=== PATIENT | female | born 1950 | race Caucasian/White ===

== ENCOUNTER 2020-06-21 08:45 | Inpatient (IN) | payer BC, MEDICARE ==
[~2020-06-21] VITALS: Ht 165.1 cm; Wt 110.0 kg
[2020-06-21] MEDS ORDERED: normal saline 1000ML IV soln IVB ONE (09:50)
[2020-06-21] MEDS ORDERED: ondansetron/PF 4mg/2ml inj IV ONE (09:50)
[2020-06-21 10:13] LABS: BASOPHILS # (AUTO) 0.1 X10'3 (0-0.2); EOSINOPHILS # (AUTO) 0.1 X10'3 (0-0.9); EOSINOPHILS % (AUTO) 0.9 % (0-6); HEMATOCRIT 43.1 % (35.0-45.0); HEMOGLOBIN 14.9 g/dl (12.0-16.0); LYMPHOCYTES # (AUTO) 0.6 X10'3 (1.1-4.8); LYMPHOCYTES % (AUTO) 7.8 % (21-51); MEAN CORPUSCULAR HEMOGLOBIN 40.8 PG (27.0-31.0); MEAN CORPUSCULAR HGB CONC 34.5 g/dL (33.0-36.5); MEAN CORPUSCULAR VOLUME 118.4 FL (78-98); MEAN PLATELET VOLUME 7.6 FL (7.4-10.4); MONOCYTES # (AUTO) 0.4 X10'3 (0-0.9); NEUTROPHILS % (AUTO) 84.3 % (42-75); PLATELET COUNT 168 X10'3 (140-440); RED BLOOD COUNT 3.64 X10'6 (4.20-5.60); RED CELL DISTRIBUTION WIDTH 13.9 % (11.5-14.5); WHITE BLOOD COUNT 7.1 X10'3 (4.5-11.0)
[2020-06-21 10:25] LABS: ALANINE AMINOTRANSFERASE 111 U/L (12-78); ALBUMIN/GLOBULIN RATIO 0.7 (1.1-1.5); ALKALINE PHOSPHATASE 216 IU/L (46-116); ANION GAP 7 (8-16); ASPARTATE AMINO TRANSFERASE 217 U/L (10-37); BILIRUBIN,TOTAL 2.2 MG/DL (0.1-1.0); BLOOD UREA NITROGEN 9 MG/DL (7-18); BUN/CREATININE RATIO 9.4 (6.6-38.0); CHLORIDE 104 MMOL/L (99-107); CREATININE 0.96 MG/DL (0.40-0.90); GLUCOSE 139 MG/DL (70-104); POTASSIUM 4.2 MMOL/L (3.5-5.1); SODIUM 139 MMOL/L (135-145); TOTAL CARBON DIOXIDE 28.2 MMOL/L (24-32); TOTAL PROTEIN 7.5 G/DL (6.4-8.2); eGFR 58 ML/MIN
[2020-06-21 10:27] LABS: LIPASE 155 U/L (73-393); TROPONIN I < 0.04 NG/ML (0.0-0.05)
[2020-06-21 10:42] LABS: PLATELET ESTIMATE NORMAL
--- NOTE | 2020-06-21 11:10 | NUR ---
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
[2020-06-21] MEDS ORDERED: NAPR-56 PO (11:28)
[2020-06-21] MEDS ORDERED: LORazepam 2 mg/ml vial IV ONE ×2 (11:40→14:45)
[2020-06-21] MEDS ORDERED: acetaminophen 325mg tablet PO PRN (12:05)
[2020-06-21] MEDS ORDERED: bisacodyl 10mg suppository rectal RC PRN (12:05)
[2020-06-21] MEDS ORDERED: potassium Cl 20 mEq SR tablet PO PRN ×2 (12:05)
[2020-06-21] MEDS ORDERED: magnesium 2GM in 50ml NS 50 ML IV PRN (12:05)
[2020-06-21] MEDS ORDERED: mag hydrox/Alum hydrox/simeth 30ml oral suspension PO PRN (12:05)
[2020-06-21] MEDS ORDERED: potassium CL 10mEq/100ml bag 100 ML IV PRN (12:05)
[2020-06-21] MEDS ORDERED: magnesium 4gm in 100ml NS 100 ML IV PRN (12:05)
[2020-06-21] MEDS: normal saline 1000ml 1,000 ML IV SCH ×2 (12:35→22:44)
--- NOTE | 2020-06-21 13:45 | NUR ---
DAUGHTER, JOHNNIE CALLED IN FOR CONDITION REPORT. JOHNNIE CONTACT NUMBER IS
--- NOTE | 2020-06-21 14:20 | NUR ---
Received report from ANCELMO Fowler. awaiting patient arrival.
--- NOTE | 2020-06-21 14:52 | NUR ---
PT TO MRI AND THEN TO THE FLOOR
--- NOTE | 2020-06-21 15:15 | NUR ---
patient arrived to the floor. VSS
[2020-06-21 15:20] VITALS: BP 153/51
--- NOTE | 2020-06-21 15:51 | NUR ---
PAGER ID: [phone] MESSAGE: Edgardo LylesB : patient refusing MRCP. even after the Ativan was given, she was not able to complete the study. thanks!
[2020-06-21] MEDS: piperacillin/tazo 4.5gm/100ml 100 ML IV SCH (16:10)
[2020-06-21] MEDS ORDERED: diazepam 5mg tablet PO ONE (16:15)
[2020-06-21 16:37] LABS: CLARITY,URINE TURBID (Clear); COLOR,URINE YELLOW (Yellow); GLUCOSE, URINE NEGATIVE (Neg); KETONES,URINE 15 mg/dl (Neg); LEUKOCYTE ESTERASE ,URINE TRACE (Neg); NITRITES, URINE POSITIVE (Neg); OCCULT BLOOD,URINE NEGATIVE (Neg); PH,URINE 6.5 (4.8-8.0); PROTEIN,URINE TRACE mg/dl (Neg); UROBILINOGEN,URINE >=8.0 E.U/dL (0.2-1.0)
[2020-06-21 16:38] LABS: UA COLLECTION TYPE OTHER
[2020-06-21 16:51] LABS: SQUAMOUS EPITHELIAL CELL,UR MANY /LPF (FEW)
[2020-06-21 16:52] LABS: BACTERIA,URINE 4+ /HPF (Neg); MUCUS STRANDS NONE SEEN /LPF (Neg); RBC,URINE 0-2 /HPF (0-2)
--- NOTE | 2020-06-21 18:05 | NUR ---
Problems reprioritized. Patient report given, questions answered & plan of care reviewed with Rhea Logan RN.
--- NOTE | 2020-06-21 18:06 | NUR ---
Student documentation: I have reviewed and agree with all interventions, assessments performed and documented by SN Dolores. Student Medication Administration: For this medication-pass time frame, all medication were reviewed, dispensed, administered and documented per hospital policy by SN oDlores.
--- NOTE | 2020-06-21 18:34 | NUR ---
Problems reprioritized. Patient report given, questions answered & plan of care reviewed with ANCELMO Wilkerson.
--- NOTE | 2020-06-21 18:51 | NUR ---
Patient in room [facility]. I have received report from ANCELMO Snowden and had the opportunity to ask questions and assume patient care.
[2020-06-21 19:31] VITALS: BP 134/59
[2020-06-21] MEDS: K and/or MAG REPLACEMENT MC SCH (19:44)
[2020-06-21] MEDS: enoxaparin 40mg/0.4ml syringe SQ SCH (20:00)
[2020-06-22] VITALS (18 sets, daily range): BP systolic 115–157; BP diastolic 58–87
[2020-06-22] MEDS: piperacillin/tazo 4.5gm/100ml 100 ML IV SCH ×4 (00:26→23:24)
[2020-06-22 06:00] LABS: ALANINE AMINOTRANSFERASE 80 U/L (12-78); ALBUMIN 2.5 G/DL (3.4-5.0); ALBUMIN/GLOBULIN RATIO 0.6 (1.1-1.5); ALKALINE PHOSPHATASE 163 IU/L (46-116); ANION GAP 9 (8-16); ASPARTATE AMINO TRANSFERASE 133 U/L (10-37); BILIRUBIN,TOTAL 2.7 MG/DL (0.1-1.0); BLOOD UREA NITROGEN 9 MG/DL (7-18); BUN/CREATININE RATIO 8.9 (6.6-38.0); CALCIUM 7.4 MG/DL (8.5-10.1); CHLORIDE 106 MMOL/L (99-107); CREATININE 1.01 MG/DL (0.40-0.90); GLUCOSE 102 MG/DL (70-104); MAGNESIUM 2.1 MG/DL (1.5-2.4); PARTIAL THROMBOPLASTIN TIME 26 SECONDS (22-32); POTASSIUM 3.4 MMOL/L (3.5-5.1); SODIUM 139 MMOL/L (135-145); TOTAL CARBON DIOXIDE 24.3 MMOL/L (24-32); TOTAL PROTEIN 6.4 G/DL (6.4-8.2); eGFR 55 ML/MIN
[2020-06-22 06:06] LABS: BASOPHILS % (AUTO) 0.4 % (0-1); EOSINOPHILS # (AUTO) 0.1 X10'3 (0-0.9); HEMATOCRIT 37.9 % (35.0-45.0); HEMOGLOBIN 12.9 g/dl (12.0-16.0); LYMPHOCYTES # (AUTO) 0.7 X10'3 (1.1-4.8); LYMPHOCYTES % (AUTO) 14.2 % (21-51); MEAN CORPUSCULAR HEMOGLOBIN 40.3 PG (27.0-31.0); MEAN CORPUSCULAR HGB CONC 33.9 g/dL (33.0-36.5); MEAN CORPUSCULAR VOLUME 118.9 FL (78-98); MEAN PLATELET VOLUME 8.1 FL (7.4-10.4); MONOCYTES # (AUTO) 0.4 X10'3 (0-0.9); MONOCYTES % (AUTO) 8.3 % (2-12); NEUTROPHILS # (AUTO) 3.9 X10'3 (1.8-7.7); NEUTROPHILS % (AUTO) 76.1 % (42-75); PLATELET COUNT 129 X10'3 (140-440); RED BLOOD COUNT 3.19 X10'6 (4.20-5.60); RED CELL DISTRIBUTION WIDTH 13.7 % (11.5-14.5); WHITE BLOOD COUNT 5.1 X10'3 (4.5-11.0)
--- NOTE | 2020-06-22 06:28 | NUR ---
Problems reprioritized. Patient report given, questions answered & plan of care reviewed with ANCELMO Snowden.
--- NOTE | 2020-06-22 06:40 | NUR ---
Patient in room [facility]. I have received report from ANCELMO Horne and had the opportunity to ask questions and assume patient care.
[2020-06-22 07:24] LABS: PLATELET ESTIMATE DECREASED
[2020-06-22] MEDS: K and/or MAG REPLACEMENT MC SCH ×2 (08:00→20:00)
[2020-06-22] MEDS: potassium CL 10mEq/100ml bag 100 ML IV PRN ×4 (08:12→19:30)
[2020-06-22] MEDS: normal saline 1000ml 1,000 ML IV SCH ×2 (10:43→18:05)
--- NOTE | 2020-06-22 12:00 | NUR ---
Spoke with Lacey daughter of patient on phone. updated on plan of care. phone number [phone]
[2020-06-22] MEDS ORDERED: INDOCYANINE GREEN 25 MG/10 ML VIAL IV ONE (13:00)
--- NOTE | 2020-06-22 14:39 | NUR ---
patient picked up for OR. report called to ANCELMO Perez.
[2020-06-22] MEDS ORDERED: LIDOcaine 1% 30ml preserv. free vial ONE (15:23)
[2020-06-22] MEDS ORDERED: BUPIVAcaine/PF 2.5 mg/ml (0.25%) 30ml vial ONE (15:23)
[2020-06-22] MEDS ORDERED: sevoflurane 250ml liquid IH ONE (15:36)
[2020-06-22] MEDS ORDERED: fentaNYL/PF 50MCG/1 ML 2ML syringe ONE (15:42)
[2020-06-22] MEDS ORDERED: midazolam 2 mg/2 ml injection ONE (15:42)
[2020-06-22] MEDS ORDERED: rocuronium 10mg/ml inj IV ONE (15:45)
[2020-06-22] MEDS ORDERED: ringers solution, lacted 1,000 ML IV SCH (16:07)
[2020-06-22] MEDS ORDERED: morphine 2 MG/ML inj. syringe IV PRN (16:10)
[2020-06-22] MEDS ORDERED: ondansetron/PF 4mg/2ml inj IV PRN (16:10)
[2020-06-22] MEDS ORDERED: proCHLORperazine 10 MG/2 ml inj IV PRN (16:10)
[2020-06-22] MEDS ORDERED: morphine 4 MG/ML inj SYRINge IV PRN (16:10)
[2020-06-22] MEDS ORDERED: meperidine/PF 25mg/ml syringe IV PRN ×3 (16:10)
[2020-06-22] MEDS ORDERED: propofol inj 20 ML IV ONE (17:22)
[2020-06-22] MEDS ORDERED: dexamethasone sod phosphate 4mg/ml inj. ONE (17:23)
[2020-06-22] MEDS ORDERED: ondansetron/PF 4mg/2ml inj ONE (17:25)
[2020-06-22] MEDS ORDERED: neostigmine methylsulfate 1 MG/ML 10ml vial ONE (17:33)
[2020-06-22] MEDS ORDERED: glycopyrrolate 0.2mg/ml inj ONE (17:33)
--- NOTE | 2020-06-22 17:40 | NUR ---
Received from OR via BED , accompanied by Anesthesiologist DR GANDHI and report given by Anesthesiolgist. PATIENT WAKING UP, DENIES PAIN, V/S WNL, NEUROVASCULAR CHECKS INTACT, 20G PIV RUE, SCD ON, BANDAIDS TO LAP SIGHTS OF ABDOMEN AND ANNAMARIE DRAIN WITH MINIMAL OUTPUT SO FAR.
[2020-06-22] MEDS ORDERED: HYDROcodone/acetaminophen 5mg/325mg tablet PO PRN (18:05)
--- NOTE | 2020-06-22 18:16 | NUR ---
Student Medication Administration: For this medication-pass time frame, all medication were reviewed, dispensed, administered and documented per hospital policy by SN Dolores. Student documentation: I have reviewed and agree with all interventions, assessments performed and documented by SN Dolores.
--- NOTE | 2020-06-22 18:24 | NUR ---
Problems reprioritized. Patient report given, questions answered & plan of care reviewed with Rhea Pisano RN.
--- NOTE | 2020-06-22 18:33 | NUR ---
Problems reprioritized. Patient report given, questions answered & plan of care reviewed with ANCELMO Wilkerson.
--- NOTE | 2020-06-22 18:34 | NUR ---
Patient in room [facility]. I have received report from Isi, RN and Navi event services manager and had the opportunity to ask questions and assume patient care.
--- NOTE | 2020-06-22 18:45 | NUR ---
PATIENT A&OX4, DENIES PAIN, V/S WNL, NEUROVASCULAR CHECKS INTACT, 20G PIV RUE, SCD ON, BANDAIDS TO LAP SIGHTS OF ABDOMEN AND ANNAMARIE DRAIN WITH APPROX 30CC OUTPUT IN ANNAMARIE. . PATIENT TAKEN TO 350B WITH ALL BELONGINGS AND HOOKED UP TO MONITORS IN ROOM AND REPORT GIVEN TO UI UX DEVELOPER WHO HAS TAKEN OVER PATIENT CARE.
[2020-06-22] MEDS: HYDROmorphone inj. 0.5 MG/0.5 ML DISP.SYRIN IV PRN (19:06)
[2020-06-22] MEDS: enoxaparin 40mg/0.4ml syringe SQ SCH (20:00)
--- NOTE | 2020-06-22 20:18 | NUR ---
Non-administered the lovenox as the patient has recently returned from a robotic lap procedure. Patient has a ANNAMARIE which has put out a total of 150 mL since return to the floor, and has bloody discharge seeping from lower midline lap site into navel. Guaze placed in navel and hydrophilic to keep secured. Will continue to monitor.
[2020-06-23] VITALS: BP 121/61
--- NOTE | 2020-06-23 03:00 | NUR ---
Pt up to restroom, ANNAMARIE drain began to leak at insertion site. Changed the lap site bandage below and removed band-aid over ANNAMARIE; redressed with fenestrated hydrophilic and foam tape.
[2020-06-23] MEDS: HYDROmorphone inj. 0.5 MG/0.5 ML DISP.SYRIN IV PRN (03:03)
[2020-06-23] MEDS: normal saline 1000ml 1,000 ML IV SCH ×2 (04:29→16:34)
[2020-06-23] MEDS: ondansetron/PF 4mg/2ml inj IV PRN (04:46)
--- NOTE | 2020-06-23 04:54 | NUR ---
Attempted to walk patient; took a couple of steps and became nauseated and started to dry heave. Administered zofran and got patient back to bed. Will attempt a walk later in the AM.
[2020-06-23 05:15] LABS: BASOPHILS % (AUTO) 0.4 % (0-1); EOSINOPHILS % (AUTO) 0 % (0-6); HEMATOCRIT 38.6 % (35.0-45.0); HEMOGLOBIN 12.9 g/dl (12.0-16.0); LYMPHOCYTES # (AUTO) 0.4 X10'3 (1.1-4.8); LYMPHOCYTES % (AUTO) 5.8 % (21-51); MEAN CORPUSCULAR HEMOGLOBIN 40.2 PG (27.0-31.0); MEAN CORPUSCULAR HGB CONC 33.4 g/dL (33.0-36.5); MEAN CORPUSCULAR VOLUME 120.5 FL (78-98); MEAN PLATELET VOLUME 8.3 FL (7.4-10.4); MONOCYTES # (AUTO) 0.3 X10'3 (0-0.9); MONOCYTES % (AUTO) 4.3 % (2-12); NEUTROPHILS % (AUTO) 89.5 % (42-75); PLATELET COUNT 142 X10'3 (140-440); RED CELL DISTRIBUTION WIDTH 13.8 % (11.5-14.5); WHITE BLOOD COUNT 6.7 X10'3 (4.5-11.0)
[2020-06-23 06:13] LABS: ALANINE AMINOTRANSFERASE 77 U/L (12-78); ALBUMIN 2.4 G/DL (3.4-5.0); ALBUMIN/GLOBULIN RATIO 0.6 (1.1-1.5); ANION GAP 10 (8-16); ASPARTATE AMINO TRANSFERASE 145 U/L (10-37); BILIRUBIN,TOTAL 2.8 MG/DL (0.1-1.0); BLOOD UREA NITROGEN 10 MG/DL (7-18); BUN/CREATININE RATIO 9.7 (6.6-38.0); CALCIUM 7.1 MG/DL (8.5-10.1); CHLORIDE 106 MMOL/L (99-107); CREATININE 1.03 MG/DL (0.40-0.90); GLUCOSE 154 MG/DL (70-104); POTASSIUM 4.1 MMOL/L (3.5-5.1); SODIUM 137 MMOL/L (135-145); TOTAL CARBON DIOXIDE 20.9 MMOL/L (24-32); TOTAL PROTEIN 6.3 G/DL (6.4-8.2); eGFR 53 ML/MIN
--- NOTE | 2020-06-23 06:28 | NUR ---
Problems reprioritized. Patient report given, questions answered & plan of care reviewed with ANCELMO Vee.
--- NOTE | 2020-06-23 06:32 | NUR ---
Patient in room [facility]. I have received report from Rhea Reynoso RN and had the opportunity to ask questions and assume patient care.
[2020-06-23 06:51] LABS: ALKALINE PHOSPHATASE 149 IU/L (46-116)
[2020-06-23 07:42] LABS: PLATELET ESTIMATE NORMAL
[2020-06-23] MEDS: piperacillin/tazo 4.5gm/100ml 100 ML IV SCH ×2 (07:56→16:33)
[2020-06-23 08:00] VITALS: BP 125/167
[2020-06-23] MEDS: K and/or MAG REPLACEMENT MC SCH ×2 (08:00→20:00)
--- NOTE | 2020-06-23 09:38 | NUR ---
Student Medication Administration: For this medication-pass time frame, all medication were reviewed, dispensed, administered and documented per hospital policy by JAKE Grewal [facility].
[2020-06-23] MEDS: HYDROcodone/acetaminophen 10/325mg tab PO PRN ×2 (12:19→16:32)
--- NOTE | 2020-06-23 18:07 | NUR ---
Student documentation: I have reviewed all interventions, assessments performed and documented by [facility] student.
[2020-06-23 20:00] VITALS: BP 124/63
[2020-06-23] MEDS: lactobacillus rhamnosus 10,000 MMU CELLS/CAPSULE PO SCH (20:00)
[2020-06-23] MEDS: enoxaparin 40mg/0.4ml syringe SQ SCH (20:00)
[2020-06-24] VITALS: BP 115/52
[2020-06-24] MEDS: HYDROcodone/acetaminophen 10/325mg tab PO PRN ×3 (01:57→19:30)
[2020-06-24 05:26] LABS: BASOPHILS % (AUTO) 0.5 % (0-1); EOSINOPHILS # (AUTO) 0.1 X10'3 (0-0.9); EOSINOPHILS % (AUTO) 0.8 % (0-6); HEMOGLOBIN 12.4 g/dl (12.0-16.0); LYMPHOCYTES # (AUTO) 0.8 X10'3 (1.1-4.8); LYMPHOCYTES % (AUTO) 11.3 % (21-51); MEAN CORPUSCULAR HEMOGLOBIN 40.4 PG (27.0-31.0); MEAN CORPUSCULAR HGB CONC 33.4 g/dL (33.0-36.5); MEAN CORPUSCULAR VOLUME 120.8 FL (78-98); MONOCYTES # (AUTO) 0.5 X10'3 (0-0.9); MONOCYTES % (AUTO) 6.7 % (2-12); NEUTROPHILS # (AUTO) 5.9 X10'3 (1.8-7.7); NEUTROPHILS % (AUTO) 80.7 % (42-75); PLATELET COUNT 140 X10'3 (140-440); RED BLOOD COUNT 3.07 X10'6 (4.20-5.60); RED CELL DISTRIBUTION WIDTH 13.9 % (11.5-14.5); WHITE BLOOD COUNT 7.3 X10'3 (4.5-11.0)
[2020-06-24 05:36] LABS: ALANINE AMINOTRANSFERASE 60 U/L (12-78); ALBUMIN 2.2 G/DL (3.4-5.0); ALBUMIN/GLOBULIN RATIO 0.6 (1.1-1.5); ALKALINE PHOSPHATASE 121 IU/L (46-116); ANION GAP 8 (8-16); ASPARTATE AMINO TRANSFERASE 92 U/L (10-37); BILIRUBIN,TOTAL 2.6 MG/DL (0.1-1.0); BLOOD UREA NITROGEN 9 MG/DL (7-18); BUN/CREATININE RATIO 9.1 (6.6-38.0); CALCIUM 7.5 MG/DL (8.5-10.1); CHLORIDE 103 MMOL/L (99-107); CREATININE 0.99 MG/DL (0.40-0.90); GLUCOSE 89 MG/DL (70-104); MAGNESIUM 1.8 MG/DL (1.5-2.4); POTASSIUM 3.8 MMOL/L (3.5-5.1); SODIUM 136 MMOL/L (135-145); TOTAL CARBON DIOXIDE 24.9 MMOL/L (24-32); TOTAL PROTEIN 5.9 G/DL (6.4-8.2); eGFR 56 ML/MIN
[2020-06-24 07:00] VITALS: BP 124/57
[2020-06-24 07:08] LABS: PLATELET ESTIMATE NORMAL
[2020-06-24] MEDS: K and/or MAG REPLACEMENT MC SCH ×2 (08:00→20:00)
[2020-06-24] MEDS: ondansetron/PF 4mg/2ml inj IV PRN ×2 (09:15→18:45)
[2020-06-24] MEDS: lactobacillus rhamnosus 10,000 MMU CELLS/CAPSULE PO SCH ×2 (09:15→19:30)
[2020-06-24 12:00] VITALS: BP 127/52
--- NOTE | 2020-06-24 18:25 | NUR ---
GAVE REPORT TO FELECIA AG.
--- NOTE | 2020-06-24 18:54 | NUR ---
I have received report from ANCELMO Meza and had the opportunity to ask questions and assume patient care.
--- NOTE | 2020-06-24 18:55 | NUR ---
Patient in room [facility]. I have received report from Susana AG and had the opportunity to ask questions and assume patient care.
[2020-06-24] MEDS: enoxaparin 40mg/0.4ml syringe SQ SCH (19:32)
[2020-06-25 00:30] VITALS: BP 127/60
[2020-06-25 05:35] LABS: BASOPHILS % (AUTO) 0.3 % (0-1); EOSINOPHILS # (AUTO) 0.1 X10'3 (0-0.9); EOSINOPHILS % (AUTO) 1.1 % (0-6); HEMATOCRIT 37.4 % (35.0-45.0); HEMOGLOBIN 12.8 g/dl (12.0-16.0); LYMPHOCYTES # (AUTO) 0.7 X10'3 (1.1-4.8); LYMPHOCYTES % (AUTO) 12.3 % (21-51); MEAN CORPUSCULAR HEMOGLOBIN 40.8 PG (27.0-31.0); MEAN CORPUSCULAR HGB CONC 34.1 g/dL (33.0-36.5); MEAN CORPUSCULAR VOLUME 119.6 FL (78-98); MONOCYTES # (AUTO) 0.4 X10'3 (0-0.9); MONOCYTES % (AUTO) 7.2 % (2-12); NEUTROPHILS # (AUTO) 4.8 X10'3 (1.8-7.7); NEUTROPHILS % (AUTO) 79.1 % (42-75); PLATELET COUNT 134 X10'3 (140-440); RED BLOOD COUNT 3.13 X10'6 (4.20-5.60); RED CELL DISTRIBUTION WIDTH 13.6 % (11.5-14.5)
[2020-06-25 05:52] LABS: ALANINE AMINOTRANSFERASE 53 U/L (12-78); ALBUMIN 2.3 G/DL (3.4-5.0); ALBUMIN/GLOBULIN RATIO 0.6 (1.1-1.5); ALKALINE PHOSPHATASE 126 IU/L (46-116); ANION GAP 8 (8-16); ASPARTATE AMINO TRANSFERASE 79 U/L (10-37); BILIRUBIN,TOTAL 2.5 MG/DL (0.1-1.0); BLOOD UREA NITROGEN 6 MG/DL (7-18); BUN/CREATININE RATIO 7.1 (6.6-38.0); CALCIUM 7.9 MG/DL (8.5-10.1); CHLORIDE 104 MMOL/L (99-107); CREATININE 0.84 MG/DL (0.40-0.90); GLUCOSE 85 MG/DL (70-104); POTASSIUM 3.5 MMOL/L (3.5-5.1); SODIUM 137 MMOL/L (135-145); TOTAL CARBON DIOXIDE 24.9 MMOL/L (24-32); TOTAL PROTEIN 6.3 G/DL (6.4-8.2); eGFR 67 ML/MIN
--- NOTE | 2020-06-25 06:43 | NUR ---
Patient in room [facility]. I have received report from ANCELMO Carvalho and had the opportunity to ask questions and assume patient care.
--- NOTE | 2020-06-25 06:52 | NUR ---
Problems reprioritized. Patient report given, questions answered & plan of care reviewed with ANCELMO Ballesteros.
[2020-06-25 07:00] VITALS: BP 144/65
[2020-06-25] MEDS: K and/or MAG REPLACEMENT MC SCH ×2 (08:00→19:47)
[2020-06-25] MEDS: HYDROcodone/acetaminophen 10/325mg tab PO PRN ×2 (08:44→19:50)
[2020-06-25] MEDS: lactobacillus rhamnosus 10,000 MMU CELLS/CAPSULE PO SCH ×2 (08:44→19:50)
[2020-06-25 11:00] VITALS: BP 130/79
--- NOTE | 2020-06-25 18:29 | NUR ---
Problems reprioritized. Patient report given, questions answered & plan of care reviewed with ANCELMO Huang.
[2020-06-25] MEDS: ondansetron/PF 4mg/2ml inj IV PRN (18:34)
[2020-06-25] MEDS: enoxaparin 40mg/0.4ml syringe SQ SCH (19:51)
[2020-06-25] MEDS ORDERED: MICONAZOLE NITRATE 100 MG VG SCH (21:00)
[2020-06-26 00:20] VITALS: BP 131/56
[2020-06-26] MEDS: ondansetron/PF 4mg/2ml inj IV PRN ×2 (05:12→11:13)
[2020-06-26 05:34] LABS: BASOPHILS % (AUTO) 0.2 % (0-1); EOSINOPHILS # (AUTO) 0.1 X10'3 (0-0.9); EOSINOPHILS % (AUTO) 1.4 % (0-6); HEMATOCRIT 36.9 % (35.0-45.0); HEMOGLOBIN 12.4 g/dl (12.0-16.0); LYMPHOCYTES # (AUTO) 0.7 X10'3 (1.1-4.8); LYMPHOCYTES % (AUTO) 10.8 % (21-51); MEAN CORPUSCULAR HEMOGLOBIN 39.9 PG (27.0-31.0); MEAN CORPUSCULAR HGB CONC 33.7 g/dL (33.0-36.5); MEAN CORPUSCULAR VOLUME 118.5 FL (78-98); MONOCYTES # (AUTO) 0.5 X10'3 (0-0.9); MONOCYTES % (AUTO) 7.8 % (2-12); NEUTROPHILS # (AUTO) 5.3 X10'3 (1.8-7.7); NEUTROPHILS % (AUTO) 79.8 % (42-75); PLATELET COUNT 140 X10'3 (140-440); RED BLOOD COUNT 3.12 X10'6 (4.20-5.60); RED CELL DISTRIBUTION WIDTH 13.9 % (11.5-14.5); WHITE BLOOD COUNT 6.6 X10'3 (4.5-11.0)
[2020-06-26 05:56] LABS: ALANINE AMINOTRANSFERASE 49 U/L (12-78); ALBUMIN 2.2 G/DL (3.4-5.0); ALBUMIN/GLOBULIN RATIO 0.6 (1.1-1.5); ALKALINE PHOSPHATASE 120 IU/L (46-116); ANION GAP 5 (8-16); ASPARTATE AMINO TRANSFERASE 72 U/L (10-37); BILIRUBIN,TOTAL 2.3 MG/DL (0.1-1.0); BLOOD UREA NITROGEN 6 MG/DL (7-18); BUN/CREATININE RATIO 7.3 (6.6-38.0); CALCIUM 8.1 MG/DL (8.5-10.1); CHLORIDE 104 MMOL/L (99-107); CREATININE 0.82 MG/DL (0.40-0.90); GLUCOSE 84 MG/DL (70-104); POTASSIUM 3.5 MMOL/L (3.5-5.1); SODIUM 138 MMOL/L (135-145); TOTAL CARBON DIOXIDE 28.8 MMOL/L (24-32); TOTAL PROTEIN 5.9 G/DL (6.4-8.2); eGFR 69 ML/MIN
--- NOTE | 2020-06-26 06:25 | NUR ---
Patient in room [facility]. I have received report from Reina AG and had the opportunity to ask questions and assume patient care.
--- NOTE | 2020-06-26 06:27 | NUR ---
Reported off to Audelia AG. Patient is resting with relaxed and unlabored respirations on room air. Call light and items of frequent use within reach.
[2020-06-26 07:00] VITALS: BP 130/60
[2020-06-26] MEDS: lactobacillus rhamnosus 10,000 MMU CELLS/CAPSULE PO SCH (07:25)
[2020-06-26] MEDS: HYDROcodone/acetaminophen 10/325mg tab PO PRN (07:25)
[2020-06-26 07:26] LABS: PLATELET ESTIMATE NORMAL; POLYCHROMASIA FEW
--- NOTE | 2020-06-26 09:36 | NUR ---
Paged Dr. Hinson PAGER ID: [phone] MESSAGE: Surgical Flr Audelia RN ext [phone]. RE: Kerry Lyles. Dr. Holly seen patient today. Per Dr. Holly, patient is okay to be discharge today, will follow up with Dr. Holly in 1 week to remove karthikeyan and reassess the drain.
[2020-06-26] MEDS ORDERED: MICO100S5 VG (10:23)
--- NOTE | 2020-06-26 11:35 | NUR ---
Discharge instructions given to patient, patient verbalized understanding of all instructions made. Zofran 4 mg IV given to patient for nausea. Patient was instructed to keep herself hydrated and that if she persistently vomiting possibly dehydrated then she will need to go to ER. Patient was instructed also about drain care and that she need to drain her ANNAMARIE drain and record daily. Peripheral IV catheter removed prior to discharge, tip intact. Instructed patient to ensure she has all her belongings with her before leaving the hospital. Addendum: 06/26/20 at 1159 by Audelia Conde RN Patient denies abdominal pain along with nausea. She said her cough is on and off and that she felt nauseous when coughing.
== END 2020-06-26 11:37 | disposition home or self-care (01) | DRG 418 ==
LOC: ER 08:46 → ED HOLD 12:05 → SUR 3N 15:09
PROVIDERS: ADMIT Family Medicine; ATTEND Family Medicine
PROC: 8E0W4CZ Robotic Assisted Procedure of Trunk Region, Percutaneous Endoscopic Approach (ICD-10-PCS; 2020-06-22)
PROC: 0FT44ZZ Resection of Gallbladder, Percutaneous Endoscopic Approach (ICD-10-PCS; principal; 2020-06-22 15:36)
DX: K80.70 Calculus of gallbladder and bile duct without cholecystitis without obstruction (principal); Z68.41 Body mass index [BMI] 40.0-44.9, adult; K91.89 Other postprocedural complications and disorders of digestive system; E66.01 Morbid (severe) obesity due to excess calories; E87.6 Hypokalemia; K76.0 Fatty (change of) liver, not elsewhere classified; Z80.0 Family history of malignant neoplasm of digestive organs; Z98.84 Bariatric surgery status
CPT/HCPCS: 96361; 96374; 99285; Z7506; Z7508; 36415; 71045; 74176; 74181; 76700; 80053; 81001; 82948; 83690; 83735; 84484; 85008; 85025; 85610; 85730; 87077; 87081; 87088; 87186; 93005; A4215; A4618; A7000; G0378; J1100; J1170; J1650; J2001; J2060; J2175; J2250; J2405; J2543; J2704; J2710; J3010; J3480; J3490; J7030; J7120

== ENCOUNTER 2020-07-27 09:06 | Emergency (ER) | payer BC, MEDICARE ==
[~2020-07-27] VITALS: Ht 165.1 cm; Wt 106.8 kg
[~2020-07-27 09:06] MED LIST: MICO100S5 VG; NAPR-56 PO
[2020-07-27 10:22] LABS: BASOPHILS # (AUTO) 0.1 X10'3 (0-0.2); BASOPHILS % (AUTO) 0.9 % (0-1); EOSINOPHILS # (AUTO) 0.1 X10'3 (0-0.9); EOSINOPHILS % (AUTO) 1.4 % (0-6); HEMATOCRIT 40.2 % (35.0-45.0); HEMOGLOBIN 13.3 g/dl (12.0-16.0); LYMPHOCYTES # (AUTO) 1.2 X10'3 (1.1-4.8); LYMPHOCYTES % (AUTO) 17.5 % (21-51); MEAN CORPUSCULAR HEMOGLOBIN 37.3 PG (27.0-31.0); MEAN CORPUSCULAR HGB CONC 33.1 g/dL (33.0-36.5); MEAN CORPUSCULAR VOLUME 112.6 FL (78-98); MEAN PLATELET VOLUME 7.9 FL (7.4-10.4); MONOCYTES # (AUTO) 0.4 X10'3 (0-0.9); MONOCYTES % (AUTO) 6.3 % (2-12); NEUTROPHILS % (AUTO) 73.9 % (42-75); PLATELET COUNT 184 X10'3 (140-440); RED BLOOD COUNT 3.57 X10'6 (4.20-5.60); RED CELL DISTRIBUTION WIDTH 13.8 % (11.5-14.5); WHITE BLOOD COUNT 6.7 X10'3 (4.5-11.0)
[2020-07-27 10:27] LABS: ALANINE AMINOTRANSFERASE 29 U/L (12-78); ALBUMIN 2.6 G/DL (3.4-5.0); ALBUMIN/GLOBULIN RATIO 0.6 (1.1-1.5); ALKALINE PHOSPHATASE 142 IU/L (46-116); ANION GAP 10 (8-16); ASPARTATE AMINO TRANSFERASE 59 U/L (10-37); BILIRUBIN,TOTAL 2.7 MG/DL (0.1-1.0); BLOOD UREA NITROGEN 6 MG/DL (7-18); BUN/CREATININE RATIO 7.7 (6.6-38.0); CHLORIDE 105 MMOL/L (99-107); CREATININE 0.78 MG/DL (0.40-0.90); GLUCOSE 105 MG/DL (70-104); POTASSIUM 3.8 MMOL/L (3.5-5.1); SODIUM 141 MMOL/L (135-145); TOTAL PROTEIN 7.1 G/DL (6.4-8.2); eGFR 73 ML/MIN
[2020-07-27] MEDS ORDERED: ondansetron 4mg rapidly disintigrating tab PO ONE (10:45)
[2020-07-27 11:00] LABS: PLATELET ESTIMATE NORMAL
[2020-07-27 11:12] LABS: CLARITY,URINE CLOUDY (Clear); COLOR,URINE AMBER (Yellow); GLUCOSE, URINE NEGATIVE (Neg); KETONES,URINE 15 mg/dl (Neg); LEUKOCYTE ESTERASE ,URINE NEGATIVE (Neg); NITRITES, URINE POSITIVE (Neg); OCCULT BLOOD,URINE TRACE-LYSED (Neg); PROTEIN,URINE 30 mg/dl (Neg)
[2020-07-27 11:13] LABS: UA COLLECTION TYPE CLN CATCH MIDSTREAM
[2020-07-27 11:20] LABS: MUCUS STRANDS MANY /LPF (Neg); SQUAMOUS EPITHELIAL CELL,UR MANY /LPF (FEW)
[2020-07-27 11:21] LABS: HYALINE CASTS 0-3 /LPF (NEGATIVE)
[2020-07-27 11:22] LABS: BACTERIA,URINE 4+ /HPF (Neg); RBC,URINE 0-2 /HPF (0-2); WBC,URINE 0-4 /HPF (0-4)
[2020-07-27] MEDS ORDERED: ONDA4TAB6 PO (11:29)
[2020-07-27] MEDS ORDERED: CEPH250T PO (11:29)
[2020-07-27 12:01] VITALS: BP 170/74
== END 2020-07-27 12:04 | disposition home or self-care (01) ==
LOC: ER 09:07
DX: R19.7 Diarrhea, unspecified (principal); I50.9 Heart failure, unspecified; N39.0 Urinary tract infection, site not specified; Z79.899 Other long term (current) drug therapy; Z98.84 Bariatric surgery status
CPT/HCPCS: 36415; 71045; 80053; 81001; 83880; 84484; 85008; 85025; 93005; 99285

== ENCOUNTER 2020-09-19 15:34 | Emergency (ER) | payer BC, MEDICARE ==
[~2020-09-19] VITALS: Ht 165.1 cm; Wt 128.2 kg
[~2020-09-19 15:34] MED LIST changes: +ONDA4TAB6 PO
[2020-09-19 16:23] LABS: BASOPHILS # (AUTO) 0.1 X10'3 (0-0.2); BASOPHILS % (AUTO) 0.7 % (0-1); EOSINOPHILS # (AUTO) 0.1 X10'3 (0-0.9); EOSINOPHILS % (AUTO) 0.6 % (0-6); HEMOGLOBIN 10.1 g/dl (12.0-16.0); LYMPHOCYTES # (AUTO) 1.1 X10'3 (1.1-4.8); LYMPHOCYTES % (AUTO) 12.3 % (21-51); MEAN CORPUSCULAR HEMOGLOBIN 39.6 PG (27.0-31.0); MEAN CORPUSCULAR HGB CONC 33.7 g/dL (33.0-36.5); MEAN CORPUSCULAR VOLUME 117.4 FL (78-98); MEAN PLATELET VOLUME 7.9 FL (7.4-10.4); MONOCYTES # (AUTO) 0.6 X10'3 (0-0.9); MONOCYTES % (AUTO) 6.7 % (2-12); NEUTROPHILS # (AUTO) 7.3 X10'3 (1.8-7.7); NEUTROPHILS % (AUTO) 79.7 % (42-75); PLATELET COUNT 204 X10'3 (140-440); RED BLOOD COUNT 2.56 X10'6 (4.20-5.60); RED CELL DISTRIBUTION WIDTH 18.1 % (11.5-14.5); WHITE BLOOD COUNT 9.1 X10'3 (4.5-11.0)
[2020-09-19 16:40] LABS: ALANINE AMINOTRANSFERASE 49 U/L (12-78); ALBUMIN 2.1 G/DL (3.4-5.0); ALBUMIN/GLOBULIN RATIO 0.5 (1.1-1.5); ALKALINE PHOSPHATASE 118 IU/L (46-116); ANION GAP 6 (8-16); ASPARTATE AMINO TRANSFERASE 95 U/L (10-37); BILIRUBIN,TOTAL 3.1 MG/DL (0.1-1.0); BLOOD UREA NITROGEN 14 MG/DL (7-18); BUN/CREATININE RATIO 14.9 (6.6-38.0); CALCIUM 8.2 MG/DL (8.5-10.1); CHLORIDE 104 MMOL/L (99-107); CREATININE 0.94 MG/DL (0.40-0.90); GLUCOSE 99 MG/DL (70-104); LIPASE 61 U/L (73-393); POTASSIUM 4.2 MMOL/L (3.5-5.1); SODIUM 137 MMOL/L (135-145); TOTAL CARBON DIOXIDE 26.9 MMOL/L (24-32); TOTAL PROTEIN 6.6 G/DL (6.4-8.2); eGFR 59 ML/MIN
[2020-09-19 16:52] LABS: ANISOCYTOSIS 2+; PLATELET ESTIMATE NORMAL; POLYCHROMASIA 1+; ROULEAUX 1+
[2020-09-19] MEDS ORDERED: pantoprazole 40 MG vial IV ONE (19:50)
[2020-09-19 20:09] LABS: PARTIAL THROMBOPLASTIN TIME 27 SECONDS (22-32)
--- NOTE | 2020-09-19 20:43 | NUR ---
2 attempts IV without success asked Chidi Issa for assist
[2020-09-19 20:55] VITALS: BP 147/77
[2020-09-19] MEDS ORDERED: PANT-47 PO (20:57)
--- NOTE | 2020-09-19 21:03 | NUR ---
Dr van verified orthostatc BP and DC home continues
[2020-09-20 03:00] LABS: OCCULT BLOOD STOOL POSITIVE (Neg)
== END 2020-09-19 21:14 | disposition home or self-care (01) ==
LOC: ER 15:34
DX: K92.1 Melena (principal); Z98.84 Bariatric surgery status
CPT/HCPCS: 36415; 80053; 82272; 83690; 85008; 85025; 85610; 85730; 86885; 86900; 86901; 96374; 99283; C9113

== ENCOUNTER 2020-10-18 08:01 | Day surgery (SDC) | payer BC, MEDICARE ==
[~2020-10-18] VITALS: Ht 165.1 cm; Wt 114.3 kg
[~2020-10-18 08:01] MED LIST changes: +PANT-47 PO
[2020-10-18] MEDS ORDERED: normal saline 1000ml 1,000 ML IV PRN (08:35)
[2020-10-18] MEDS ORDERED: albumin 25% 100mL bottle x 1 IV PRN (08:35)
[2020-10-18] MEDS ORDERED: CALC500T11 PO (09:11)
[2020-10-18] MEDS ORDERED: POTA10TA36 PO (09:11)
[2020-10-18] MEDS ORDERED: FURO-150 PO (09:11)
[2020-10-18] MEDS ORDERED: SPIR50TA5 PO (09:11)
[2020-10-18] MEDS ORDERED: PANT-47 PO (09:11)
[2020-10-18] MEDS ORDERED: LISI-604 PO (09:11)
[2020-10-18 09:21] VITALS: BP 97/58
[2020-10-18 09:37] VITALS: BP 121/59
[2020-10-18 09:52] VITALS: BP 113/58
[2020-10-18] MEDS ORDERED: FLU VACC QS2020-21(6MOS UP)/PF 60 MCG/0.5 ML SYRINGE IMVAC ONE (10:00)
[2020-10-18] MEDS ORDERED: pneumococcal 23-VAL P-sac vacc 25 mcg/0.5ml vial IMVAC ONE (10:00)
[2020-10-18 10:07] VITALS: BP 103/49
[2020-10-18 10:22] VITALS: BP 103/52
[2020-10-18 10:36] VITALS: BP 102/45
[2020-10-18 10:51] LABS: TOTAL PROTEIN,BODY FLUID 2.8 G/DL
[2020-10-18 11:17] LABS: BF WBC COUNT 190 /CU MM (0-1000); BFAPPEAR CLEAR; BFCOLOR YELLOW; BFVOLUME 60 ML; LYMPHOCYTES,BODY FLUID 35 %; MONOCYTES,BODY FLUID 41 %; NEUTROPHILS,BODY FLUID 24 %
[2020-10-18 11:18] LABS: BF MESOTHELIAL CELLS OCCASIONAL; BF RBC COUNT 67 /CU MM; OTHER CELLS,BODY FLUID MACROPHAGES
== END 2020-10-18 11:28 | disposition home or self-care (01) ==
LOC: SSTAY O 08:01
PROVIDERS: ATTEND Radiology Vascular & Interventional Radiology
DX: R18.8 Other ascites (principal); Z23 Encounter for immunization; K74.60 Unspecified cirrhosis of liver; M19.90 Unspecified osteoarthritis, unspecified site; Z90.49 Acquired absence of other specified parts of digestive tract; Z98.84 Bariatric surgery status; Z80.0 Family history of malignant neoplasm of digestive organs; Z79.899 Other long term (current) drug therapy; Z83.6 Family history of other diseases of the respiratory system
CPT/HCPCS: 49083; 82042; 84157; 87015; 87070; 87116; 87206; 89051; 90471; 90732; P9047; Q2039

== ENCOUNTER 2020-10-19 09:39 | Emergency (ER) | payer BC, MEDICARE ==
[~2020-10-19] VITALS: Ht 165.1 cm; Wt 114.5 kg
[~2020-10-19 09:39] MED LIST changes: +CALC500T11 PO; +FURO-150 PO; +LISI-604 PO; -MICO100S5 VG; -NAPR-56 PO; -ONDA4TAB6 PO; +POTA10TA36 PO; +SPIR50TA5 PO
[2020-10-19 10:53] LABS: BASOPHILS % (AUTO) 0.3 % (0-1); EOSINOPHILS # (AUTO) 0.1 X10'3 (0-0.9); EOSINOPHILS % (AUTO) 0.8 % (0-6); HEMATOCRIT 28.2 % (35.0-45.0); HEMOGLOBIN 9.4 g/dl (12.0-16.0); LYMPHOCYTES # (AUTO) 0.8 X10'3 (1.1-4.8); LYMPHOCYTES % (AUTO) 11.2 % (21-51); MEAN CORPUSCULAR HEMOGLOBIN 39.6 PG (27.0-31.0); MEAN CORPUSCULAR HGB CONC 33.3 g/dL (33.0-36.5); MEAN CORPUSCULAR VOLUME 118.9 FL (78-98); MEAN PLATELET VOLUME 7.3 FL (7.4-10.4); MONOCYTES # (AUTO) 0.7 X10'3 (0-0.9); MONOCYTES % (AUTO) 8.9 % (2-12); NEUTROPHILS # (AUTO) 5.8 X10'3 (1.8-7.7); NEUTROPHILS % (AUTO) 78.8 % (42-75); PLATELET COUNT 214 X10'3 (140-440); RED BLOOD COUNT 2.37 X10'6 (4.20-5.60); WHITE BLOOD COUNT 7.4 X10'3 (4.5-11.0)
[2020-10-19 11:05] LABS: PARTIAL THROMBOPLASTIN TIME 26 SECONDS (22-32)
[2020-10-19 11:09] LABS: ALANINE AMINOTRANSFERASE 20 U/L (12-78); ALBUMIN 2.3 G/DL (3.4-5.0); ALBUMIN/GLOBULIN RATIO 0.5 (1.1-1.5); ALKALINE PHOSPHATASE 84 IU/L (46-116); ANION GAP 6 (8-16); ASPARTATE AMINO TRANSFERASE 41 U/L (10-37); BILIRUBIN,TOTAL 2.4 MG/DL (0.1-1.0); BLOOD UREA NITROGEN 8 MG/DL (7-18); BUN/CREATININE RATIO 8.3 (6.6-38.0); CALCIUM 8.1 MG/DL (8.5-10.1); CHLORIDE 103 MMOL/L (99-107); CREATININE 0.96 MG/DL (0.40-0.90); GLUCOSE 104 MG/DL (70-104); POTASSIUM 4.2 MMOL/L (3.5-5.1); SODIUM 137 MMOL/L (135-145); TOTAL CARBON DIOXIDE 28.1 MMOL/L (24-32); TOTAL PROTEIN 6.7 G/DL (6.4-8.2); eGFR 58 ML/MIN
[2020-10-19 11:15] LABS: PLATELET ESTIMATE NORMAL
[2020-10-19 11:17] LABS: AMYLASE 29 U/L (25-115); ETHANOL < 0.010 GM/DL (0.0-0.010); LIPASE 69 U/L (73-393); MAGNESIUM 2.4 MG/DL (1.5-2.4)
[2020-10-19 13:17] VITALS: BP 112/53
== END 2020-10-19 14:09 | disposition home or self-care (01) ==
LOC: ER 09:40
DX: R51.9 Headache, unspecified (principal); Z20.828 Contact with and (suspected) exposure to other viral communicable diseases; D53.9 Nutritional anemia, unspecified; Z79.899 Other long term (current) drug therapy; Z87.19 Personal history of other diseases of the digestive system; Z98.84 Bariatric surgery status
CPT/HCPCS: 36415; 71045; 80053; 80320; 82140; 82150; 83690; 83735; 83880; 85008; 85025; 85610; 85730; 87635; 99284